=== PATIENT | male | born 1995 | race Two or more races ===

== ENCOUNTER 2023-10-02 07:15 | Emergency (ER) | payer MEDICAID, OTHER ==
[~2023-10-02] VITALS: Ht 180.3 cm; Wt 128.0 kg
[2023-10-02 09:07] LABS: Urine Bacteria None Seen /hpf (None Seen)
[2023-10-02 09:21] LABS: Urine Blood Negative /uL (Negative); Urine Clarity Clear (Clear); Urine Color Light-Yellow (Yellow); Urine Protein, UAD Negative (Negative); Urine Specific Gravity 1.025 (1.001-1.035); Urine Urobilinogen Normal (Negative); Urine WBC 1 /hpf (0 - 3)
[2023-10-02] MEDS: cefTRIAXone W LIDOCAINE 1 GM IM IM ONE (11:45)
[2023-10-02 11:56] VITALS: BP 148/87; PULSE 96; RESP 18; TEMP 98.1; O2SAT 98
[2023-10-02] MEDS ORDERED: DOXY-346 PO (12:07)
[2023-10-02] MEDS ORDERED: IBUP-1455 PO (12:07)
[2023-10-02] MEDS ORDERED: HYDR50TA32 PO (12:26)
== END 2023-10-02 12:28 | disposition home or self-care (01) ==
LOC: ER 07:15
DX: N45.2 Orchitis (principal); F41.9 Anxiety disorder, unspecified; Z79.899 Other long term (current) drug therapy
CPT/HCPCS: 76870; 81001; 96372; 99285; J0696